=== PATIENT | male | born 1965 | race Two or more races ===

== ENCOUNTER 2019-06-04 14:50 | Emergency (ER) | payer MEDICAID ==
[~2019-06-04] VITALS: Ht 167.6 cm; Wt 95.3 kg
[2019-06-04 15:00] VITALS: BP 115/70
== END 2019-06-04 16:29 | disposition home or self-care (01) ==
LOC: ER 14:50
DX: F20.9 Schizophrenia, unspecified (principal); Z76.0 Encounter for issue of repeat prescription